=== PATIENT | male | born 1985 | race Caucasian/White ===

== ENCOUNTER 2016-10-10 14:05 | Emergency (ER) | payer OTHER ==
--- NOTE | ~2016-10-10 | CR173 ---
[facility] A Service of [facility] & [facility] RADIOLOGY TEXT RESULTS PATIENT: RASHEL BRYAN LOCATION: CFTX : 83 UNIT #: [id number] AGE: [address]: Zaina Bello MD SEX: M ORDER DR: [id number] [facility] [address] [place], [place] [address] [id number] E MR#: [id number] Acc #: [id number] NAME: RASHEL BRYAN : 1985 SEX: M STUDY DATE/TIME: 10/10/2016 1327 UNIT: CFFL ROOM: STUDY DESCRIPTION: CR Knee 3 Views Rt Attending Physician: Zaina Bello M.D. Ordering Physician: Zaina Bello M.D. Primary Care Physician: Jenna Mas A.P.R.N. MEDICAL IMAGING REPORT This report is preliminary unless electronic signature is present EXAM Right knee 3 views 10/10/2016 1327 hours HISTORY 31-year-old who fell with twisting injury to knee. Pain and pressure in knee. COMPARISON None. FINDINGS AP, lateral and sunrise views demonstrate trace synovial thickening or fluid in the suprapatellar bursa with no lipohemarthrosis or fracture. There is significant prepatellar soft tissue swelling measuring up to 1.8 cm anterior-posterior. This could represent edema, hematoma or fluid in the prepatellar bursa. There is no joint space loss or loose body. IMPRESSION 1. There is trace synovial thickening or fluid in the suprapatellar bursa without lipohemarthrosis or fracture. 2. There is prepatellar soft tissue prominence consistent with edema, hematoma or fluid in the bursa. This measures up to 1.8 cm anterior-posterior superficial to the inferior patella. Dictated by... Hemalatha Smalls M.D. THIS IS AN ELECTRONICALLY VERIFIED REPORT Hemalatha Smalls M.D. at 10/10/2016 5:46 PM CEE/raffi TD: 10/10/2016 15:23 JOB #: [id number] [facility] A Service of [facility] & [facility] RADIOLOGY TEXT RESULTS PATIENT: RASHEL BRYAN LOCATION: [facility] : 83 UNIT #: [id number] AGE: [address]: Zaina Bello MD SEX: M ORDER DR: MEDICAL IMAGING REPORT Page 1 of 1 COPY
[~2016-10-10 14:05] MED LIST: AMOXICILLIN500 M1 PO; ARIXTRA7.5 MG/0.6 SQ; ASPIRIN PO; ASPIRIN81 M1 PO; COUMADIN5 MG PO; KEFLEX500 M1 PO; MEVACOR PO; NORCO 7.5-3251 EACH PO
== END 2016-10-10 15:18 | disposition home or self-care (01) ==
LOC: CFTX 14:05
DX: S89.91XA Unspecified injury of right lower leg, initial encounter (principal); I10 Essential (primary) hypertension; F17.200 Nicotine dependence, unspecified, uncomplicated; Z91.018 Allergy to other foods; W18.30XA Fall on same level, unspecified, initial encounter; Y92.009 Unspecified place in unspecified non-institutional (private) residence as the place of occurrence of the external cause
CPT/HCPCS: 29505; 73562; 99283